=== PATIENT | female | born 1975 | race Caucasian/White ===

== ENCOUNTER 2018-02-01 20:18 | Inpatient (IN) | payer MEDICAID, OTHER ==
[2018-02-01 22:51] LABS: ADD UMIC YES; UR ASCORBIC ACID NEGATIVE (NEGATIVE); UR BILIRUBIN (Dip) NEGATIVE (NEGATIVE); UR BLOOD (Dip) 2+ mg/dL (NEGATIVE); UR CLARITY CLEAR (CLEAR); UR COLOR YELLOW (YELLOW); UR GLUCOSE (Dip) NEGATIVE (NEGATIVE); UR KETONES (Dip) TRACE mg/dL (NEGATIVE); UR LEUKOCYTE ESTERASE (Dip) TRACE Leu/ul (NEGATIVE); UR NITRITE (Dip) NEGATIVE (NEGATIVE); UR RBC 0 /HPF (0-5); UR SPECIFIC GRAVITY (Dip) 1.013 (1.003-1.030); UR SQUAMOUS EPITHELIAL CELL FEW /HPF (FEW); UR TOTAL PROTEIN (Dip) NEGATIVE (NEGATIVE); UR UROBILINOGEN (Dip) NEGATIVE (NEGATIVE); UR WBC 1 /HPF (0-5)
[2018-02-01] MEDS: ACETAMINOPHEN 325 MG TAB PO (23:02)
[2018-02-01] MEDS: KETOROLAC 15 MG INJ IM (23:34)
[2018-02-01 23:50] LABS: ADD MAN DIFF? NO
[2018-02-01 23:52] LABS: ABNORMAL IP MESSAGE 1; BASOPHILS % 0.3 % (0.0-2.0); EOSINOPHILS % 0.2 % (0.0-7.0); HEMATOCRIT 25.2 % (37.0-47.0); LYMPHOCYTES # 1.8 10^3/ul (0.8-2.9); LYMPHOCYTES % 13.2 % (15.0-51.0); MEAN CORPUSCULAR HEMOGLOBIN 15.6 pg (29.0-33.0); MEAN CORPUSCULAR HGB CONC 26.2 g/dl (32.0-37.0); MEAN CORPUSCULAR VOLUME 59.7 fl (82.0-101.0); MONOCYTE # 0.6 10^3/ul (0.3-0.9); MONOCYTES % 4.7 % (0.0-11.0); NEUTROPHILS % 81.1 % (39.0-77.0); PLATELET COUNT 720 10^3/UL (140-415); RED BLOOD COUNT 4.22 10^6/ul (4.20-5.40); RED CELL DISTRIBUTION WIDTH 22.2 % (11.5-14.5)
[2018-02-01 23:52] LABS: WHITE BLOOD COUNT 13.6 10^3/ul (4.8-10.8)
[2018-02-02 00:27] LABS: POSITIVE DIFF @See below
[2018-02-02 00:30] LABS: HEMOGLOBIN 6.6 g/dl (12.0-16.0)
[2018-02-02] MEDS: SOD CHLORIDE 0.9% 1,000 ML IV ×4 (00:56→17:00)
[2018-02-02] MEDS ORDERED: NACL 0.9% 3 ML SYG IV (01:30)
[2018-02-02 08:14] LABS: ADD MAN DIFF? NO
[2018-02-02 08:23] LABS: WHITE BLOOD COUNT 10.2 10^3/ul (4.8-10.8)
[2018-02-02 08:23] LABS: ABNORMAL IP MESSAGE 1; BASOPHIL # 0.1 10^3/ul (0.0-0.1); BASOPHILS % 0.5 % (0.0-2.0); EOSINOPHILS # 0.1 10^3/ul (0.0-0.5); EOSINOPHILS % 1.4 % (0.0-7.0); HEMATOCRIT 28.2 % (37.0-47.0); HEMOGLOBIN 7.6 g/dl (12.0-16.0); LYMPHOCYTES # 3.5 10^3/ul (0.8-2.9); LYMPHOCYTES % 34.4 % (15.0-51.0); MEAN CORPUSCULAR HEMOGLOBIN 17.4 pg (29.0-33.0); MEAN CORPUSCULAR VOLUME 64.7 fl (82.0-101.0); MEAN PLATELET VOLUME 9.1 fl (7.4-10.4); MONOCYTE # 0.7 10^3/ul (0.3-0.9); NEUTROPHIL # 5.8 10^3/ul (1.6-7.5); NEUTROPHILS % 56.4 % (39.0-77.0); PLATELET COUNT 613 10^3/UL (140-415); RED BLOOD COUNT 4.36 10^6/ul (4.20-5.40); RED CELL DISTRIBUTION WIDTH 26.3 % (11.5-14.5)
[2018-02-02 08:30] LABS: HEMOGLOBIN A1C 5.5 % (0-5.9)
[2018-02-02 08:31] LABS: POSITIVE DIFF @See below
[2018-02-02 08:38] LABS: IRON 59 ug/dl (35-150)
[2018-02-02 08:41] LABS: ALANINE AMINOTRANSFERASE 31 IU/L (13-69); ALBUMIN/GLOBULIN RATIO 1.02; ALKALINE PHOSPHATASE 75 IU/L (42-121); ANION GAP 18 (8-16); ASPARTATE AMINO TRANSFERASE 32 IU/L (15-46); BILIRUBIN,INDIRECT 0.6 mg/dl (0-1.1); BILIRUBIN,TOTAL 0.6 mg/dl (0.2-1.3); BLOOD UREA NITROGEN 6 mg/dl (7-20); CALCIUM 8.5 mg/dl (8.4-10.2); CARBON DIOXIDE 24 mmol/L (21-31); CHLORIDE 110 mmol/L (97-110); CHOL/HDL RATIO 5.3 RATIO; CHOLESTEROL 175 mg/dl (100-200); CREATININE 0.58 mg/dl (0.44-1.00); GLUCOSE 96 mg/dl (70-220); HDL CHOLESTEROL 33 mg/dl (34-88); LDL CHOLESTEROL,CALCULATED 123 mg/dl; MAGNESIUM 2.1 mg/dl (1.7-2.5); POTASSIUM 3.7 mmol/L (3.5-5.1); SODIUM 148 mmol/L (135-144); TOTAL PROTEIN 7.9 g/dl (6.1-8.1); TRIGLYCERIDES 95 mg/dl (0-149)
[2018-02-02 08:48] LABS: % IRON SATURATION 14 % SAT (22-52); TOTAL IRON BINDING CAPACITY 414 ug/dl (241-421)
[2018-02-02] MEDS: morphine 2 MG INJ IV (09:01)
[2018-02-02 10:30] LABS: FERRITIN 3.1 ng/ml (6.2-137.0)
[2018-02-02] MEDS: SOD CHLORIDE 0.9% 250 ML IV* (11:22)
[2018-02-02 13:53] LABS: IMMEDIATE SPIN CROSSMATCH 1 3
[2018-02-02] MEDS: ONDANSETRON 4 MG INJ IV (14:59)
[2018-02-02] MEDS: SOD FERRIC GLUC COMPLX 125 MG in SOD CHLORIDE 0.9% 100 ML IVPB (17:00)
[2018-02-03 00:55] LABS: OCCULT BLOOD STOOL NEGATIVE (NEGATIVE)
[2018-02-03] MEDS: SOD CHLORIDE 0.9% 1,000 ML IV (01:56)
[2018-02-03 06:25] LABS: ANION GAP 16 (8-16); BLOOD UREA NITROGEN 7 mg/dl (7-20); CALCIUM 8.5 mg/dl (8.4-10.2); CARBON DIOXIDE 22 mmol/L (21-31); CHLORIDE 112 mmol/L (97-110); CREATININE 0.64 mg/dl (0.44-1.00); GLUCOSE 97 mg/dl (70-220); POTASSIUM 4.1 mmol/L (3.5-5.1); SODIUM 146 mmol/L (135-144)
[2018-02-03] MEDS ORDERED: METOCLOPRAMIDE 10 MG INJ (07:00)
[2018-02-03] MEDS ORDERED: DEXAMETHASONE 4 MG/ML 1 ML INJ (07:00)
[2018-02-03] MEDS ORDERED: FENTAnyl 50 MCG/ML VIAL (07:50)
[2018-02-03] MEDS ORDERED: MIDAZOLAM 1 MG/ML 2 ML INJ (07:52)
[2018-02-03] MEDS ORDERED: ONDANSETRON 4 MG INJ (08:11)
[2018-02-03] MEDS ORDERED: LIDOCAINE 2% (SDV) 5 ML INJ (08:13)
[2018-02-03] MEDS ORDERED: PROPOFOL 20 ML (08:13)
[2018-02-03] MEDS ORDERED: HYDROmorphONE (0.2 MG/ML) 10ML SYG IV ×2 (09:30)
[2018-02-03] MEDS ORDERED: FENTAnyl 50 MCG/ML VIAL IV ×2 (09:30)
[2018-02-03] MEDS ORDERED: ONDANSETRON 4 MG INJ IV (09:30)
[2018-02-03 09:33] LABS: ADD MAN DIFF? NO
[2018-02-03 09:37] LABS: ABNORMAL IP MESSAGE 1; BASOPHIL # 0.1 10^3/ul (0.0-0.1); BASOPHILS % 0.5 % (0.0-2.0); EOSINOPHILS # 0.3 10^3/ul (0.0-0.5); HEMOGLOBIN 10.5 g/dl (12.0-16.0); LYMPHOCYTES # 2.8 10^3/ul (0.8-2.9); LYMPHOCYTES % 30.4 % (15.0-51.0); MEAN CORPUSCULAR HEMOGLOBIN 21.2 pg (29.0-33.0); MEAN CORPUSCULAR VOLUME 70.6 fl (82.0-101.0); MEAN PLATELET VOLUME 9.1 fl (7.4-10.4); MONOCYTE # 0.6 10^3/ul (0.3-0.9); MONOCYTES % 6.9 % (0.0-11.0); NEUTROPHIL # 5.2 10^3/ul (1.6-7.5); NEUTROPHILS % 56.2 % (39.0-77.0); NUCLEATED RED BLOOD CELLS # 0.1 10^3/ul (0.0-0.0); NUCLEATED RED BLOOD CELLS% 0.6 /100WBC (0.0-0.0); PLATELET COUNT 491 10^3/UL (140-415); RED BLOOD COUNT 4.96 10^6/ul (4.20-5.40); RED CELL DISTRIBUTION WIDTH 27.3 % (11.5-14.5)
[2018-02-03 09:37] LABS: WHITE BLOOD COUNT 9.3 10^3/ul (4.8-10.8)
[2018-02-03 09:40] LABS: POSITIVE DIFF @See below
[2018-02-03 09:57] LABS: INR 1.01; PROTIME 13.4 Sec (11.9-14.9)
[2018-02-03 09:58] LABS: ANION GAP 15 (8-16); BLOOD UREA NITROGEN 5 mg/dl (7-20); CARBON DIOXIDE 21 mmol/L (21-31); CHLORIDE 112 mmol/L (97-110); CREATININE 0.57 mg/dl (0.44-1.00); GLUCOSE 113 mg/dl (70-220); PARTIAL THROMBOPLASTIN TIME 29.8 Sec (25.0-35.0); POTASSIUM 3.8 mmol/L (3.5-5.1); SODIUM 144 mmol/L (135-144)
[2018-02-03] MEDS: SOD CHLORIDE 0.45% 1,000 ML IV ×3 (10:53→23:05)
[2018-02-03] MEDS: SOD FERRIC GLUC COMPLX 125 MG in SOD CHLORIDE 0.9% 100 ML IVPB (10:53)
[2018-02-03 19:16] LABS: ADD MAN DIFF? NO
[2018-02-03 19:19] LABS: WHITE BLOOD COUNT 9.8 10^3/ul (4.8-10.8)
[2018-02-03 19:19] LABS: ABNORMAL IP MESSAGE 1; BASOPHIL # 0.1 10^3/ul (0.0-0.1); BASOPHILS % 0.7 % (0.0-2.0); EOSINOPHILS # 0.3 10^3/ul (0.0-0.5); EOSINOPHILS % 3.2 % (0.0-7.0); HEMATOCRIT 32.7 % (37.0-47.0); HEMOGLOBIN 9.7 g/dl (12.0-16.0); LYMPHOCYTES # 2.2 10^3/ul (0.8-2.9); LYMPHOCYTES % 22.6 % (15.0-51.0); MEAN CORPUSCULAR HEMOGLOBIN 20.8 pg (29.0-33.0); MEAN CORPUSCULAR HGB CONC 29.7 g/dl (32.0-37.0); MEAN CORPUSCULAR VOLUME 70.2 fl (82.0-101.0); MEAN PLATELET VOLUME 8.8 fl (7.4-10.4); MONOCYTE # 0.7 10^3/ul (0.3-0.9); MONOCYTES % 7.3 % (0.0-11.0); NEUTROPHIL # 6.4 10^3/ul (1.6-7.5); NEUTROPHILS % 65.5 % (39.0-77.0); NUCLEATED RED BLOOD CELLS% 0.3 /100WBC (0.0-0.0); PLATELET COUNT 457 10^3/UL (140-415); RED BLOOD COUNT 4.66 10^6/ul (4.20-5.40); RED CELL DISTRIBUTION WIDTH 28.2 % (11.5-14.5)
[2018-02-03 19:25] LABS: POSITIVE DIFF @See below
[2018-02-03] MEDS: ACETAMINOPHEN 325 MG TAB PO (20:36)
[2018-02-04 05:54] LABS: ADD MAN DIFF? NO
[2018-02-04 05:56] LABS: WHITE BLOOD COUNT 8.5 10^3/ul (4.8-10.8)
[2018-02-04 05:56] LABS: ABNORMAL IP MESSAGE 1; BASOPHIL # 0.1 10^3/ul (0.0-0.1); BASOPHILS % 0.8 % (0.0-2.0); EOSINOPHILS # 0.5 10^3/ul (0.0-0.5); EOSINOPHILS % 6.1 % (0.0-7.0); HEMOGLOBIN 10.1 g/dl (12.0-16.0); LYMPHOCYTES # 2.9 10^3/ul (0.8-2.9); LYMPHOCYTES % 33.6 % (15.0-51.0); MEAN CORPUSCULAR HEMOGLOBIN 21.1 pg (29.0-33.0); MEAN CORPUSCULAR HGB CONC 29.7 g/dl (32.0-37.0); MEAN PLATELET VOLUME 9.2 fl (7.4-10.4); MONOCYTE # 0.6 10^3/ul (0.3-0.9); MONOCYTES % 6.6 % (0.0-11.0); NEUTROPHIL # 4.5 10^3/ul (1.6-7.5); NEUTROPHILS % 52.5 % (39.0-77.0); NUCLEATED RED BLOOD CELLS% 0.5 /100WBC (0.0-0.0); PLATELET COUNT 489 10^3/UL (140-415); RED BLOOD COUNT 4.79 10^6/ul (4.20-5.40); RED CELL DISTRIBUTION WIDTH 28.5 % (11.5-14.5)
[2018-02-04 05:59] LABS: POSITIVE DIFF @See below
[2018-02-04] MEDS: SOD CHLORIDE 0.45% 1,000 ML IV (10:15)
[2018-02-04] MEDS: SOD FERRIC GLUC COMPLX 125 MG in SOD CHLORIDE 0.9% 100 ML IVPB (13:31)
== END 2018-02-04 15:00 | disposition home or self-care (01) | DRG 744 ==
LOC: FTE 20:18 → MS2 02-02 01:07
PROC: 0UDB8ZX Extraction of Endometrium, Via Natural or Artificial Opening Endoscopic, Diagnostic (ICD-10-PCS; principal; 2018-02-03 07:30)
PROC: 30233N1 Transfusion of Nonautologous Red Blood Cells into Peripheral Vein, Percutaneous Approach (ICD-10-PCS; 2018-02-03 07:45)
DX: D25.1 Intramural leiomyoma of uterus (principal); D62 Acute posthemorrhagic anemia; E87.0 Hyperosmolality and hypernatremia; Z98.51 Tubal ligation status; D50.9 Iron deficiency anemia, unspecified; D47.3 Essential (hemorrhagic) thrombocythemia; D72.829 Elevated white blood cell count, unspecified; N92.0 Excessive and frequent menstruation with regular cycle
CPT/HCPCS: 36430; 76830; 76856; 80048; 80053; 80061; 81001; 81025; 82270; 82728; 83036; 83540; 83735; 84443; 85025; 85610; 85730; 86850; 86900; 86901; 86920; 88305